=== PATIENT | male | born 1965 ===

== ENCOUNTER 2018-03-15 07:51 | Day surgery (SDC) | payer MEDICARE ==
[2018-03-15] MEDS ORDERED: Sodium Chloride 0.9% 250 ML IV ONE (08:40)
[2018-03-15 08:42] VITALS: O2SAT 100
[2018-03-15] MEDS ORDERED: Propofol 10 mg/ml Inj (20 ML) ONE (09:54)
[2018-03-15 10:41] VITALS: TEMP 97.2
[2018-03-15 11:01] VITALS: BP 126/55; PULSE 71; RESP 13
== END 2018-03-15 12:46 | disposition home or self-care (01) ==
LOC: H.ENDO 07:51
PROVIDERS: ATTEND Internal Medicine Gastroenterology
DX: Z12.11 Encounter for screening for malignant neoplasm of colon (principal); E11.22 Type 2 diabetes mellitus with diabetic chronic kidney disease; N18.6 End stage renal disease; E03.9 Hypothyroidism, unspecified; D12.4 Benign neoplasm of descending colon; K62.1 Rectal polyp; Z99.2 Dependence on renal dialysis; I12.0 Hypertensive chronic kidney disease with stage 5 chronic kidney disease or end stage renal disease
CPT/HCPCS: 45380; 45385; 88305; J2001; J2704; J7040